=== PATIENT | female | born 1950 | race Caucasian/White ===

== ENCOUNTER 2020-08-09 20:59 | Emergency (ER) | payer MEDICARE, OTHER ==
[2020-08-09 21:31] LABS: HEMOGLOBIN 14.5 gm/dl (12.3-15.3); RED BLOOD COUNT 5.24 M/UL (4.00-5.10); WHITE BLOOD COUNT 8.1 K/UL (4.5-11.0)
[2020-08-09 22:00] LABS: BUN/CREATININE RATIO 11 (0-10)
[2020-08-10] MEDS ORDERED: KEFLEX500 MG PO (00:56)
[2020-08-10] MEDS ORDERED: ZOFRAN ODT 4 MG4 MG GT (00:56)
[2020-08-10 11:21] LABS: ACINETOBACTER BAUMANNII Not Detected (Negative); CANDIDA ALBICANS Not Detected (Negative); CANDIDA KRUSEI Not Detected (Negative); CANDIDA TROPICALIS Not Detected (Negative); ENTEROCOCCUS Not Detected (Negative); ESCHERICHIA COLI Not Detected (Negative); HAEMOPHILUS INFLUENZAE Not Detected (Negative); KLEBSIELLA OXYTOCA Not Detected (Negative); KPC-CARBAPENEM-RESISTANCE GENE Not Detected (Negative); PROTEUS Not Detected (Negative); PSEUDOMONAS AERUGINOSA Not Detected (Negative); SERRATIA MARCESANS Not Detected (Negative); STAPHYLOCOCCUS Not Detected (Negative); STAPHYLOCOCCUS AUREUS Not Detected (Negative); STREP AGALACTIAE (GROUP B) Not Detected (Negative); STREP PYOGENES (GROUP A) Not Detected (Negative); STREPTOCOCCUS Not Detected (Negative); mecA (METHICILLIN RESIST GENE Not Detected (Negative); vanA/B (VANCOMYCIN RESIST GENE Not Detected (Negative)
[2020-08-10 12:40] LABS: KLEBSIELLA PNEUMONIAE DETECTED (Negative)
== END 2020-08-10 01:36 | disposition home or self-care (01) ==
LOC: ER1 20:59
PROVIDERS: Family Medicine
DX: N39.0 Urinary tract infection, site not specified (principal); N28.89 Other specified disorders of kidney and ureter; Z86.73 Personal history of transient ischemic attack (TIA), and cerebral infarction without residual deficits; Z79.82 Long term (current) use of aspirin
CPT/HCPCS: 36600; 70450; 71045; 80053; 81001; 82140; 82550; 82553; 82803; 83605; 84439; 84443; 84484; 85025; 85610; 87040; 87077; 87086; 87150; 87186; 96374; 99285; J0690; Q9967

== ENCOUNTER 2020-08-24 16:17 | Emergency (ER) | payer MEDICARE, OTHER ==
[~2020-08-24 16:17] MED LIST: KEFLEX500 MG PO; ZOFRAN ODT 4 MG4 MG GT
[2020-08-24 17:00] LABS: HEMOGLOBIN 14.3 gm/dl (12.3-15.3); RED BLOOD COUNT 5.13 M/UL (4.00-5.10); WHITE BLOOD COUNT 6.7 K/UL (4.5-11.0)
[2020-08-24 17:31] LABS: BUN/CREATININE RATIO 17 (0-10)
[2020-08-24] MEDS ORDERED: OMNICEF 300 MG300 MG PO (19:14)
[2020-08-24] MEDS ORDERED: LEVOFLOXACIN500 MG PO (19:14)
== END 2020-08-24 20:20 | disposition home or self-care (01) ==
LOC: ER1 16:17
PROVIDERS: Family Medicine
DX: F03.90 Unspecified dementia, unspecified severity, without behavioral disturbance, psychotic disturbance, mood disturbance, and anxiety (principal); N39.0 Urinary tract infection, site not specified; E87.6 Hypokalemia; E11.9 Type 2 diabetes mellitus without complications; Z79.4 Long term (current) use of insulin; Z20.822 Contact with and (suspected) exposure to COVID-19
CPT/HCPCS: 70450; 71045; 80053; 81001; 82009; 82550; 82553; 83605; 83690; 83735; 83874; 84439; 84443; 84484; 85025; 85610; 87077; 87086; 87186; 93005; 96374; 96375; 96376; 99285; J0360; J0696; U0002

== ENCOUNTER 2020-09-15 19:17 | Emergency (ER) | payer MEDICARE, OTHER ==
[~2020-09-15 19:17] MED LIST changes: +LEVOFLOXACIN500 MG PO; +OMNICEF 300 MG300 MG PO
[2020-09-15 20:15] LABS: HEMOGLOBIN 13.7 gm/dl (12.3-15.3); RED BLOOD COUNT 4.79 M/UL (4.00-5.10); WHITE BLOOD COUNT 4.2 K/UL (4.5-11.0)
[2020-09-15 20:43] LABS: BUN/CREATININE RATIO 33 (0-10)
== END 2020-09-16 01:03 | disposition home or self-care (01) ==
LOC: ER1 19:17
PROVIDERS: Emergency Medicine
DX: E11.65 Type 2 diabetes mellitus with hyperglycemia (principal); I10 Essential (primary) hypertension; Z90.710 Acquired absence of both cervix and uterus; Z86.73 Personal history of transient ischemic attack (TIA), and cerebral infarction without residual deficits
CPT/HCPCS: 36415; 71045; 80053; 81001; 82962; 83605; 83690; 84484; 85025; 85610; 85730; 87040; 93005; 99285; Q9967

== ENCOUNTER 2021-01-22 23:11 | Emergency (ER) | payer MEDICARE, OTHER ==
[2021-01-22 23:46] LABS: HEMOGLOBIN 14.5 gm/dl (12.3-15.3); RED BLOOD COUNT 4.86 M/UL (4.00-5.10); WHITE BLOOD COUNT 7.8 K/UL (4.5-11.0)
[2021-01-23 00:10] LABS: BUN/CREATININE RATIO 26 (0-10)
[2021-01-23] MEDS ORDERED: KEFLEX750 MG PO (03:46)
== END 2021-01-23 04:20 | disposition home or self-care (01) ==
LOC: ER1 23:11
PROVIDERS: Family Medicine
DX: E11.65 Type 2 diabetes mellitus with hyperglycemia (principal); I10 Essential (primary) hypertension; R94.6 Abnormal results of thyroid function studies
CPT/HCPCS: 51701; 71045; 80053; 81001; 82962; 84439; 84443; 85025; 87077; 87086; 87186; 96365; 99285; J0690

== ENCOUNTER 2021-03-05 14:47 | Emergency (ER) | payer MEDICARE, OTHER ==
[~2021-03-05 14:47] MED LIST changes: +KEFLEX750 MG PO
[2021-03-05 16:28] LABS: HEMOGLOBIN 13.5 gm/dl (12.3-15.3); RED BLOOD COUNT 4.61 M/UL (4.00-5.10); WHITE BLOOD COUNT 7.1 K/UL (4.5-11.0)
[2021-03-05 17:09] LABS: BUN/CREATININE RATIO 20 (0-10)
[2021-03-05] MEDS ORDERED: MYCOSTATIN POWD15 GM TOP (19:17)
[2021-03-05] MEDS ORDERED: DESITIN CREAM 660 GM TOP (19:17)
[2021-03-05] MEDS ORDERED: ATHLETIC FOOT C30 GM TP (19:17)
== END 2021-03-05 19:35 | disposition home or self-care (01) ==
LOC: ER1 14:47
PROVIDERS: Physician Assistant Medical
DX: L02.211 Cutaneous abscess of abdominal wall (principal); E11.9 Type 2 diabetes mellitus without complications; Z20.822 Contact with and (suspected) exposure to COVID-19
CPT/HCPCS: 0240U; 10060; 80053; 83690; 85025; 87040; 99283

== ENCOUNTER 2021-03-19 21:05 | Emergency (ER) | payer MEDICARE, OTHER ==
[~2021-03-19 21:05] MED LIST changes: +ATHLETIC FOOT C30 GM TP; +DESITIN CREAM 660 GM TOP; +MYCOSTATIN POWD15 GM TOP
[2021-03-19 21:39] LABS: HEMOGLOBIN 13.5 gm/dl (12.3-15.3); RED BLOOD COUNT 4.61 M/UL (4.00-5.10); WHITE BLOOD COUNT 7.5 K/UL (4.5-11.0)
[2021-03-19 22:02] LABS: BUN/CREATININE RATIO 24 (0-10)
== END 2021-03-19 22:51 | disposition home or self-care (01) ==
LOC: ER1 21:05
PROVIDERS: Preventive Medicine Occupational Medicine
DX: E11.65 Type 2 diabetes mellitus with hyperglycemia (principal); F03.90 Unspecified dementia, unspecified severity, without behavioral disturbance, psychotic disturbance, mood disturbance, and anxiety; I10 Essential (primary) hypertension; E86.0 Dehydration; Z20.822 Contact with and (suspected) exposure to COVID-19
CPT/HCPCS: 71045; 80053; 80307; 82962; 83036; 83690; 85025; 85652; 86140; 96374; 99285; G0480; U0002

== ENCOUNTER 2021-04-07 17:44 | Emergency (ER) | payer MEDICARE, OTHER ==
[2021-04-07 19:12] LABS: HEMOGLOBIN 15.2 gm/dl (12.3-15.3); RED BLOOD COUNT 5.15 M/UL (4.00-5.10); WHITE BLOOD COUNT 7.8 K/UL (4.5-11.0)
[2021-04-07 19:32] LABS: BUN/CREATININE RATIO 26 (0-10)
== END 2021-04-07 21:45 | disposition home or self-care (01) ==
LOC: ER1 17:44
PROVIDERS: Physician Assistant Medical
DX: R53.83 Other fatigue (principal); E11.9 Type 2 diabetes mellitus without complications; I10 Essential (primary) hypertension; Z86.73 Personal history of transient ischemic attack (TIA), and cerebral infarction without residual deficits; Z90.49 Acquired absence of other specified parts of digestive tract; Z90.710 Acquired absence of both cervix and uterus
CPT/HCPCS: 36600; 71045; 80053; 82009; 82550; 82553; 82803; 83605; 83874; 84439; 84443; 84484; 85025; 93005; 99284